=== PATIENT | female | born 1960 | race Caucasian/White ===

== ENCOUNTER 2017-08-16 10:53 | Emergency (ER) | payer MEDICAID, OTHER ==
--- NOTE | 2017-08-16 11:20 | ERNOTE ---
Medical Problem HPI - Narrative Date of Service: 08/16/17 - General Chief Complaint: General Assessment Time Seen by Provider: 08/16/17 11:13 Source: patient, RN notes reviewed Exam Limitations: no limitations - Immun/Allergies/Home Medications Immunizations: IMMUNIZATION HX Immunizations Up to Date Yes History of Influenza Vaccine Yes Hx Pneumococcal Vaccination No Allergies/Adverse Reactions: Allergies Penicillins Allergy (Verified 03/03/15 10:49) Home Medications: HOME MEDICATIONS Meloxicam 7.5 mg PO DAILY #30 tablet 08/16/17 [Last Taken Unknown] - History of Present History Narrative: 56 year old female ambulatory to the ED for right leg pain that has been present for 3 months. She denies any injury. She was seen in another ED and reports that she was told to put ice on it. She states that no diagnostic studies were done. She did not f/u with her PCP. Her pain is diffuse from the thigh all the way down to her foot. She also reports swelling. She has been taking OTC pain relievers without improvement. Review of Systems - Review of Systems Constitutional: Absent: recent illness, fever, malaise EYE: Present: no symptoms reported ENT: Present: no symptoms reported Respiratory: Absent: shortness of breath, cough Cardiology: Present: edema. Absent: chest pain, claudication Gastrointestinal/Abdominal: Present: no symptoms reported Genitourinary: Present: no symptoms reported Musculoskeletal: Present: muscle pain. Absent: back pain, joint pain, joint swelling Skin: Absent: rash, lesions, lumps, change in color Neurological: Absent: weakness, numbness, tingling Endocrine: Present: no symptoms reported Hematologic/Lymphatic: Present: no symptoms reported Psych: Present: no symptoms reported - Patient's Past Medical History Patient History - Medical: No pertinent hx Patient History - Cardiac/Respiratory: Asthma Patient History - Cancer: No Hx of Cancer Patient History - Surgical Procedures: Appendectomy, Hysterectomy, Tubal Ligation Patient History - Other: None LMP (females 10-50): Menopausal - Social History Living Situations: home Abuse History: No History of abuse Psych History: No pertinent hx Smoking Status: Current some day smoker Alcohol Use: none Drug Use: none - Immunizations Immunizations Up to Date: Yes Hx Pneumococcal Vaccination: No History of Influenza Vaccine: Yes Physical Exam - Physical Exam General Appearance: Present: wd/wn, alert, no apparent distress Neck: Present: normal inspection, nontender, supple Respiratory: Present: no respiratory distress, normal breath sounds, no accessory muscle use, lungs clear Cardiovascular/Chest: Present: regular rate, rhythm, no murmur, normal peripheral pulses Extremity Exam: Present: normal range of motion, extremity edema - Bilateral legs, slightly worse on right, other - Diffuse tenderness throughout right lower extremity. Absent: joint redness, joint swelling Neurological Exam: Present: alert, oriented, normal mood/affect, no motor/ sensory deficits Skin Exam: Present: normal color, warm/dry ED Progress - Results and Orders Patient's Lab Results:: I have reviewed the patient's lab results. - Vital Signs Patient's Vital Signs:: I have reviewed the patient's vital signs. Vital Signs: Vital Signs 08/16/17 10:57 Temperature 36.8 C Pulse Rate 80 Respiratory 16 Rate Blood Pressure 128/79 O2 Sat by Pulse 96 Oximetry - X-Ray X-Ray #1 X-Ray: knee Interpretation: Reviewed by me X-ray Comments: TECHNIQUE: 3 views of the right knee. COMPARISONS: None available. Knee 3 Views RT * No definable fracture lucency or cortical discontinuity. Joint spaces are in gross normal alignment without subluxation or dislocation. Marginal osteophytes /bony spurring noted throughout the right knee, especially affecting the right medial compartment, with associated mild joint space narrowing. Soft tissues are grossly normal. No significant joint effusion. IMPRESSION: Right knee osteoarthritis. Electronically signed by Rachel Herrera M.D.. X-Ray #2 X-Ray: foot Interpretation: Reviewed by me X-ray Comments: Foot 3 Views RT * FINDINGS/IMPRESSION: 1. No definable fracture lucency or cortical discontinuity. Lateral view demonstrates calcaneal plantar heel spur. 2. Joint spaces are in gross normal alignment without subluxation or dislocation. Lisfranc joint grossly intact. Joint space narrowing, and marginal osteophytes are present at the first metatarsophalangeal joint consistent with osteoarthritis. 3. Mild soft tissue prominence noted adjacent to the first MTP joint. There is no evidence for soft tissue gas or radiopaque foreign body. Electronically signed by Rachel Herrera M.D.. - Progress/Reassessment Chief Complaint: General Assessment Progress:: Unchanged Departure Clinical Impression: Osteoarthritis of right knee Qualifiers: Osteoarthritis type: unspecified Qualified Code(s): M17.11 - Unilateral primary osteoarthritis, right knee - Departure Disposition: Home Follow Up Needed Condition: Stable Instructions: Osteoarthritis Referrals: Mike Pete MD [Staff Physician] - Prescriptions: Meloxicam 7.5 mg PO DAILY #30 tablet
[2017-08-16 11:34] LABS: Hematocrit 39.3 % (37.0-47.0); Hemoglobin 13.2 gm/dL (12.5-16.0); Mean Cell Volume 81.4 fl (78-100); Mean Corpuscular Hemoglobin 27.3 pg (27-31); Mean Corpuscular Hgb Conc 33.6 g/dl (32-36); Mean Platelet Volume 9.5 fl (6.0-9.5); Neutrophil # 5.9 K/mm3 (1.3-6.0); Platelet Count 324 K/mm3 (150-450); Red Blood Count 4.83 M/mm3 (4.2-5.4); Red Cell Distribution Width 13.3 % (11.5-14.0); White Blood Count 10.1 K/mm3 (4.0-10.5)
[2017-08-16 11:46] LABS: Albumin * 3.5 gm/dl (3.4-5.0); Anion Gap 13.2 mmol/L (6.8-13.8); BUN/Creatinine Ratio 24.2 (9.0-21.6); Bilirubin, Total 0.2 mg/dL (0.0-1.1); CRP 0.2 mg/dL (0.0-0.9); Ca. Corrected For Albumin 9.3 mg/dL (8.4-10.2); Calcium * 9.2 mg/dL (7.9-10.9); Carbon Dioxide 25.5 mmol/L (24-32.6); Potassium 3.7 mmol/L (3.4-4.6); Total Protein 7.4 gm/dL (6.2-8.2)
[2017-08-16 12:47] VITALS: BP 121/78
== END 2017-08-16 13:25 | disposition home or self-care (01) ==
LOC: ER 10:53
DX: M17.11 Unilateral primary osteoarthritis, right knee (principal); F17.200 Nicotine dependence, unspecified, uncomplicated